=== PATIENT | male | born 1940 | race Native Hawaiian/Other Pacific Islander ===

== ENCOUNTER 2016-11-09 16:53 | Inpatient (IN) | payer MEDICARE, MEDICAID ==
--- NOTE | 2016-11-09 18:09 | C.PDOC ---
History Of Present Illness <Devan Velez - Last Filed: 11/09/16 18:59> <Rubin Barkley E - Last Filed: 11/09/16 23:28> 76-year-old male, presents to the emergency department with complaints of abdominal pain and fever since yesterday. During my evaluation, patient points to his epigastric region. States he saw his doctor today, who referred him to ED for further evaluation. Patient denies nausea/vomiting, diarrhea, cough or dysuria. States he took Tylenol yesterday, but did not take any medication today. No other complaints at this time. (Devan Velez) History Per: Patient History/Exam Limitations: no limitations Onset/Duration Of Symptoms: Days Current Symptoms Are (Timing): Still Present <Devan Velez - Last Filed: 11/09/16 18:59> <Rubin Barkley E - Last Filed: 11/09/16 23:28> Time Seen by Provider: 11/09/16 18:07 Chief Complaint (Nursing): Abdominal Pain Past Medical History Reviewed: Historical Data, Nursing Documentation, Vital Signs - Medical History PMH: Cardia Arrhythmia (BRADYCARDIA), Gall Bladder Disease, HTN, Hypercholesterolemia Denies: Chronic Kidney Disease Surgical History: Cholecystectomy, Coronary Stent, Endoscopy Family History: States: Unknown Family Hx - Social History Hx Alcohol Use: No Hx Substance Use: No - Immunization History Hx Tetanus Toxoid Vaccination: No Hx Influenza Vaccination: No Hx Pneumococcal Vaccination: No <Devan Velez - Last Filed: 11/09/16 18:59> Vital Signs: Last Vital Signs Temp 99.6 F 11/09/16 21:38 Pulse 76 11/09/16 21:38 Resp 18 11/09/16 21:38 BP 122/59 L 11/09/16 21:38 Pulse Ox 96 11/09/16 21:38 - [facility] Procedures CLOSED ENDOSCOPIC BIOPSY OF LARGE INTESTINE (02/03/14) Review Of Systems Except As Marked, All Systems Reviewed And Found Negative. Constitutional: Positive for: Fever Cardiovascular: Negative for: Chest Pain, Palpitations Respiratory: Negative for: Cough Gastrointestinal: Positive for: Abdominal Pain. Negative for: Nausea, Vomiting Skin: Negative for: Rash Neurological: Negative for: Weakness, Numbness, Headache, Dizziness <Devan Velez P - Last Filed: 11/09/16 18:59> Physical Exam - Physical Exam Appears: Non-toxic, No Acute Distress Skin: Warm, Dry, No Rash Head: Atraumatic, Normacephalic Eye(s): bilateral: Normal Inspection, PERRL Nose: Normal Oral Mucosa: Moist Lips: Normal Appearing Neck: Normal ROM Cardiovascular: Rhythm Regular Respiratory: Normal Breath Sounds, No Accessory Muscle Use Gastrointestinal/Abdominal: Soft, Tenderness (RLQ), No Guarding, No Rebound Extremity: Normal ROM Neurological/Psych: Oriented x3, Normal Speech <Devan Velez P - Last Filed: 11/09/16 18:59> ED Course And Treatment O2 Sat by Pulse Oximetry: 98 <Devan Velez P - Last Filed: 11/09/16 18:59> - Laboratory Results Result Diagrams: 11/09/16 19:13 11/09/16 19:13 Lab Interpretation: Abnormal Interpretation Of Abnormal: Leukocytosis with left shift. - CT Scan/US CT abdomen/pelvis Other Rad Studies (CT/US): Read By Radiologist, Radiology Report Reviewed CT/US Interpretation: Cholecystectomy with pneumobilia. Multiple cholesterol choledocholithiasis and mild biliary dilatation. Progress Note: Pt was signed out to me at 7pm by Dr. Velez to f/up labs and CT scan results. - Physician Consult Information Physician Contacted: Gordon Navarro (GI) Outcome Of Conversation: He recommended giving pt cipro and flagyl and admitting to the hospital. <Rubin Barkley E - Last Filed: 11/09/16 23:28> Progress - Interventions Interventions:: Observation, Intravenous fluid - Medications Administered Intravenous: Other (Abx) - Data Reviewed Data Reviewed: Lab, Diagnostic imaging, Old records - Patient Status Patient status: Partially improved - Continuity of Care Discussed patient case with:: Patient, Family-HIPPA compliant, ED Nurse, On- call PMD-pt unassigned Discussed pt. case with hr consultant/specialty: Gastroenterology - Patient Plan Patient Plan: Admission <Rubin Barkley E - Last Filed: 11/09/16 23:28> Disposition - Disposition Disposition Time: 19:00 <Devan Velez P - Last Filed: 11/09/16 18:59> Discussed With : Moy Hwang Comment: He accepted pt on his service and gave admitting orders to the nurse. Doctor Will See Patient In The: Hospital Counseled Patient/Family Regarding: Studies Performed, Diagnosis - Disposition Disposition Time: 23:27 <Rubin Barkley - Last Filed: 11/09/16 23:28> - Disposition Disposition: HOSPITALIZED Condition: FAIR - Clinical Impression Clinical Impression: Choledocholithiasis, Leukocytosis - Scribe Statement The provider has reviewed the documentation as recorded by the Scribe <Devan Velez - Last Filed: 11/09/16 18:59> <Rubin Barkley - Last Filed: 11/09/16 23:28> - Scribe Statement Janet Sanchez All medical record entries made by the Scribe were at my direction and personally dictated by me. I have reviewed the chart and agree that the record accurately reflects my personal performance of the history, physical exam, medical decision making, and the department course for this patient. I have also personally directed, reviewed, and agree with the discharge instructions and disposition. (Devan Velez) Physician Patient Turnover Patient Signed Over To: Rubin Barkley Handoff Comments: pending labs and CT <Devan Velez - Last Filed: 11/09/16 18:59>
[2016-11-09] MEDS ORDERED: Sodium Chloride 0.9% 1,000 ML IV ONE (18:30)
[2016-11-09 19:18] LABS: BASO % 0.2 % (0.0-2.0); HEMATOCRIT 36.7 % (35.0-51.0); LYMPH # 0.6 K/uL (1.0-4.3); LYMPH % 3.9 % (20.0-40.0); MEAN CELL VOLUME 102.2 fL (80.0-94.0); MEAN CORPUSCULAR HEMOGLOBIN 34.2 pg (27.0-31.0); MEAN CORPUSCULAR HGB CONC 33.5 g/dL (33.0-37.0); MEAN PLATELET VOLUME 6.3 fL (7.2-11.7); MONO # 1.1 K/uL (0.0-0.8); MONO % 7.6 % (0.0-10.0); PLATELET COUNT 188 K/uL (130-400); RED CELL DISTRIBUTION WIDTH 12.4 % (11.5-14.5); WHITE BLOOD COUNT 14.3 K/uL (4.8-10.8)
[2016-11-09 19:20] LABS: RBC URINE 12 /hpf (0-3); URINE BACTERIA RARE (<OCC); URINE BILIRUBIN NEGATIVE (NEGATIVE); URINE BLOOD 1+ (NEGATIVE); URINE COLOR Yellow (YELLOW); URINE GLUCOSE (UA) NORMAL (Normal); URINE KETONE NEGATIVE (NEGATIVE); URINE PROTEIN 1+ mg/dL (NEGATIVE); URINE UROBILINOGEN NORMAL mg/dL (0.2-1.0); WBC URINE 1 /hpf (0-5)
[2016-11-09 19:21] LABS: URINE LEUKOCYTE ESTERASE NEGATIVE Leu/uL (Negative)
[2016-11-09 19:24] LABS: CHLORIDE 87 mmol/L (98-107)
[2016-11-09 19:25] LABS: POTASSIUM 3.6 mmol/L (3.6-5.2); SODIUM 127 mmol/L (132-148)
[2016-11-09 19:27] LABS: ALB/GLOB RATIO 1.2 (1.0-2.1); ALKALINE PHOSPHATASE 63 U/L (38-126); AST/SGOT 33 U/L (17-59); BILIRUBIN,TOTAL 3.1 mg/dL (0.2-1.3); CARBON DIOXIDE 24 mmol/L (22-30); GFR AFRICAN-AMERICAN > 60; TOTAL PROTEIN 8.2 g/dL (6.3-8.3)
[2016-11-09 19:27] LABS: VENOUS BLOOD GAS PCO2 49 mmHg (40-60); VENOUS BLOOD PH 7.38 (7.32-7.43)
[2016-11-09 19:28] LABS: ALT/SGPT 42 U/L (21-72); BLOOD UREA NITROGEN 17 mg/dL (9-20); CALCIUM 8.7 mg/dl (8.6-10.4); GLUCOSE,RANDOM 95 mg/dL (75-110)
[2016-11-09] MEDS ORDERED: Iohexol 350mg/ml 100 ML ONE (19:43)
[2016-11-09 21:49] LABS: NEUTROPHIL 91 % (50-75); TOTAL CELLS COUNTED 100
[2016-11-09] MEDS ORDERED: metroNIDAZOLE IV 500 mg/100 ml 100 ML IVPB STA (22:55)
[2016-11-09] MEDS ORDERED: Ciprofloxacin 400mg/200ml D5W 200 ML IVPB STA (22:55)
[2016-11-09] MEDS ORDERED: metroNIDAZOLE IV 500 mg/100 ml 100 ML ONE (23:04)
[2016-11-10] MEDS ORDERED: Dextrose 5%-0.225% NS 1,000 ML IV ONE (00:37)
[2016-11-10] MEDS ORDERED: Ciprofloxacin 400mg/200ml D5W 200 ML IVPB ONE (00:37)
[2016-11-10] MEDS: Dextrose 5%/0.45% NS 1,000 ML IV SCH ×2 (00:44→13:49)
--- NOTE | 2016-11-10 09:08 | CT ---
PROCEDURE: CT Abdomen and Pelvis with contrast HISTORY: abdominal pain COMPARISON: Not available TECHNIQUE: Contrast dose: 100 mL Omnipaque 350 Radiation dose: Total exam DLP = 294.74 mGy-cm. FINDINGS: LOWER THORAX: 7 mm nodule in right lower lobe (series 3, image 8). This is unchanged from CT chest examination of 05/09/2016. Continued surveillance advised with follow-up noncontrast chest CT in 12-18 months. . Mild cardiomegaly. Coronary arterial stent. LIVER: Normal size, contour and attenuation. Intrahepatic biliary gas likely resulting from prior sphincterotomy associated with cholecystectomy. No mass. GALLBLADDER AND BILE DUCTS: Status post cholecystectomy. Probable noncalcified cholesterol stones in common bile duct. PANCREAS: Unremarkable. No gross lesion or ductal dilatation. No evidence of pancreatitis based on imaging findings. SPLEEN: Unremarkable. ADRENALS: Bilateral adrenal hypertrophy. No adrenal mass. KIDNEYS AND URETERS: Multiple bilateral renal cysts. There is a nonspecific focal parenchymal scar in the lower left kidney new since prior examination. Previously identified cyst in this location has now flattened beneath the cortical scar. No calculus or hydronephrosis. VASCULATURE: Unremarkable. No aortic aneurysm. BOWEL: Unremarkable. No obstruction. No gross mural thickening. APPENDIX: Normal appendix. PERITONEUM: Unremarkable. No free fluid. No free air. LYMPH NODES: Unremarkable. No enlarged lymph nodes. BLADDER: Unremarkable. REPRODUCTIVE: Normal prostate BONES: No acute fracture. OTHER FINDINGS: None. IMPRESSION: Status post cholecystectomy. Intrahepatic biliary gas, likely associated with prior sphincterotomy. Probable noncalcified cholesterol stones within common bile duct. No evidence of biliary obstruction. No evidence of pancreatitis. Additional minor findings as above. Preliminary interpretation of this examination was reported by [facility] at 10:35 p.m. on 11/09/2016. There is concurrence of this report with the preliminary interpretation.
[2016-11-10] MEDS: Enoxaparin 40 mg Syringe SC SCH (09:49)
[2016-11-10] MEDS: Metoprolol Succinate 100 mg XL Tab PO SCH (09:49)
[2016-11-10] MEDS: Ciprofloxacin 400mg/200ml D5W 200 ML IVPB SCH ×2 (10:27→20:52)
[2016-11-10] MEDS ORDERED: Gadodiamide 287 MG/ML VIAL (15ML) IV ONE (11:00)
[2016-11-10 11:18] LABS: BASO % 0.5 % (0.0-2.0); HEMATOCRIT 36.1 % (35.0-51.0); LYMPH # 0.8 K/uL (1.0-4.3); LYMPH % 11.5 % (20.0-40.0); MEAN CELL VOLUME 101.3 fL (80.0-94.0); MEAN CORPUSCULAR HEMOGLOBIN 34.5 pg (27.0-31.0); MEAN CORPUSCULAR HGB CONC 34.1 g/dL (33.0-37.0); MEAN PLATELET VOLUME 6.7 fL (7.2-11.7); MONO # 0.8 K/uL (0.0-0.8); MONO % 10.9 % (0.0-10.0); RED CELL DISTRIBUTION WIDTH 12.3 % (11.5-14.5); WHITE BLOOD COUNT 7.2 K/uL (4.8-10.8)
[2016-11-10 11:43] LABS: CHLORIDE 92 mmol/L (98-107)
[2016-11-10 11:44] LABS: POTASSIUM 3.3 mmol/L (3.6-5.2); SODIUM 131 mmol/L (132-148)
[2016-11-10 11:46] LABS: BILIRUBIN,TOTAL 3.2 mg/dL (0.2-1.3); CARBON DIOXIDE 25 mmol/L (22-30); GFR AFRICAN-AMERICAN > 60
[2016-11-10 11:47] LABS: ALB/GLOB RATIO 1.1 (1.0-2.1); ALKALINE PHOSPHATASE 62 U/L (38-126); ALT/SGPT 28 U/L (21-72); AST/SGOT 29 U/L (17-59); BLOOD UREA NITROGEN 12 mg/dL (9-20); CALCIUM 8.6 mg/dl (8.6-10.4); GLUCOSE,RANDOM 103 mg/dL (75-110); TOTAL PROTEIN 7.8 g/dL (6.3-8.3)
--- NOTE | 2016-11-10 12:49 | CP.PCM.CON ---
History of Present Illness - History of Present Illness History of Present Illness: This is a 76 year old man with epigastric pain and fever. Patient has a history of CBD stones dating back five years, treated with sphincterotomy and stone extraction. The most recent ERCP and cholangioscopy was at [facility], 11/12/2012. He did well until the day before admission, when he noted sudden onset of subxiphoid pain, vague, accompanied by chills and a feverish feeling. He did not check his temperature. The pain seemed similar to the pain he had previously from choledocholitihiasis. He presented to the office yesterday morning, at which time the temperature was 100.9 F. In the ER, the total bilirubin was noted to be elevated, but the remaining liver enzymes were WNL. CT scan was suspicious for recurrent CBD stones. Review of Systems - Constitutional Constitutional: Chills, Fever, Night Sweats - Cardiovascular Cardiovascular: absent: Chest Pain, Palpitations - Respiratory Respiratory: absent: Cough - Gastrointestinal Gastrointestinal: Abdominal Pain. absent: Constipation, Diarrhea, Dysphagia, Heartburn, Hematochezia, Nausea, Vomiting - Integumentary Integumentary: absent: Rash - Neurological Neurological: absent: Dizziness, Headaches, Weakness Past Patient History - Past Medical History & Family History Past Medical History?: Yes - Past Social History Smoking Status: Never Smoked - CARDIAC Hx Cardia Arrhythmia: Yes (BRADYCARDIA) Hx Hypercholesterolemia: Yes Hx Hypertension: Yes - PULMONARY Hx Respiratory Disorders: No - NEUROLOGICAL Hx Neurological Disorder: No - HEENT Hx HEENT Problems: Yes Hx Cataracts: Yes Hx Glaucoma: Yes - RENAL Hx Chronic Kidney Disease: No - ENDOCRINE/METABOLIC Hx Endocrine Disorders: No - HEMATOLOGICAL/ONCOLOGICAL Hx Blood Disorders: No - INTEGUMENTARY Hx Dermatological Problems: No - MUSCULOSKELETAL/RHEUMATOLOGICAL Hx Musculoskeletal Disorders: No Hx Falls: No - GASTROINTESTINAL Hx Gall Bladder Disease: Yes - GENITOURINARY/GYNECOLOGICAL Hx Genitourinary Disorders: Yes Hx Prostate Problems: Yes (BPH) - PSYCHIATRIC Hx Substance Use: No - SURGICAL HISTORY Hx Cholecystectomy: Yes Hx Coronary Stent: Yes - ANESTHESIA Hx Anesthesia: Yes Hx Anesthesia Reactions: No Hx Malignant Hyperthermia: No Meds Allergies/Adverse Reactions: Allergies Allergy/AdvReac Type Severity Reaction Status Date / Time Penicillins Allergy Severe ITCHING Verified 11/09/16 17:01 tazobactam Allergy Severe ITCHING Verified 11/09/16 17:01 - Medications Medications: Current Medications Amlodipine Besylate (Norvasc) 10 mg PO DAILY [facility] Last Admin: 11/10/16 09:49 Dose: 10 mg Aspirin (Ecotrin) 81 mg PO DAILY [facility] Last Admin: 11/10/16 09:49 Dose: 81 mg Enoxaparin Sodium (Lovenox) 40 mg SC DAILY [facility] Last Admin: 11/10/16 09:49 Dose: 40 mg Dextrose/Sodium Chloride (Dextrose 5%/0.45% Ns 1000 Ml) 1,000 mls @ 80 mls/hr IV .[id number] [facility] Last Admin: 11/10/16 00:44 Dose: 80 mls/hr Ciprofloxacin (Cipro 400mg/200ml Dsw) 200 mls @ 133 mls/hr IVPB Q12H [facility] Last Admin: 11/10/16 10:27 Dose: 133 mls/hr Metronidazole (Flagyl) 100 mls @ 100 mls/hr IVPB Q8 [facility] Influenza Virus Vaccine (Afluria) 45 mcg IM .ONCE ONE Stop: 11/12/16 14:01 Metoprolol Succinate (Toprol Xl) 100 mg PO DAILY [facility] Last Admin: 11/10/16 09:49 Dose: 100 mg Morphine Sulfate (Morphine) 2 mg IVP Q4 PRN PRN Reason: Pain, moderate (4-7) Last Admin: 11/10/16 09:56 Dose: 2 mg Pneumococcal Polyvalent Vaccine (Pneumovax 23 Vaccine) 0.5 ml IM .ONCE ONE Stop: 11/12/16 14:01 Tamsulosin HCl (Flomax) 0.4 mg PO DAILY [facility] Last Admin: 11/10/16 09:49 Dose: 0.4 mg Ursodiol (Actigall) 300 mg PO DAILY [facility] Last Admin: 11/10/16 09:49 Dose: 300 mg Physical Exam - Constitutional Appears: No Acute Distress - Head Exam Head Exam: ATRAUMATIC, NORMOCEPHALIC - Eye Exam Eye Exam: EOMI, PERRL - Neck Exam Neck exam: Negative for: Lymphadenopathy, Thyromegaly - Respiratory Exam Respiratory Exam: NORMAL BREATHING PATTERN. absent: Rales, Rhonchi, Wheezes - Cardiovascular Exam Cardiovascular Exam: REGULAR RHYTHM, +S1, +S2. absent: Gallop, Rubs, Systolic Murmur - GI/Abdominal Exam GI & Abdominal Exam: Normal Bowel Sounds, Soft. absent: Mass, Organomegaly, Tenderness - Rectal Exam Rectal Exam: Deferred - Extremities Exam Extremities exam: Negative for: calf tenderness, pedal edema Results - Vital Signs Recent Vital Signs: Last Vital Signs Temp 98.4 F 11/10/16 09:02 Pulse 74 11/10/16 09:02 Resp 18 11/10/16 09:02 BP 137/70 11/10/16 09:02 Pulse Ox 96 11/10/16 09:02 - Labs Result Diagrams: 11/10/16 11:13 11/10/16 11:13 Labs: Laboratory Results - last 24 hr 11/10/16 11:13 WBC 7.2 RBC 3.57 L Hgb 12.3 Hct 36.1 MCV 101.3 H MCH 34.5 H MCHC 34.1 RDW 12.3 Plt Count 182 MPV 6.7 L Neut % (Auto) 77.1 H Lymph % (Auto) 11.5 L [place] % (Auto) 10.9 H Eos % (Auto) 0.0 Baso % (Auto) 0.5 Neut # 5.5 Lymph # 0.8 L [place] # 0.8 Eos # 0.0 Baso # 0.0 Sodium 131 L Potassium 3.3 L Chloride 92 L Carbon Dioxide 25 Anion Gap 17 BUN 12 Creatinine 0.8 Est GFR ( Amer) > 60 Est GFR (Non-Af Amer) > 60 Random Glucose 103 Calcium 8.6 Total Bilirubin 3.2 H GGT 30 AST 29 ALT 28 Alkaline Phosphatase 62 Total Protein 7.8 Albumin 4.1 Globulin 3.7 Albumin/Globulin Ratio 1.1 Assessment & Plan - Assessment and Plan (Free Text) Assessment: Patient has fever, chill, epigastric pain, and evidence on imaging studies of recurrent CBD stones. Will continue antibiotics and plan for ERCP in AM.
[2016-11-10] MEDS ORDERED: Sodium Chloride 0.9% 1,000 ML IV SCH (13:15)
[2016-11-10] MEDS: metroNIDAZOLE IV 500 mg/100 ml 100 ML IVPB SCH ×2 (13:49→22:16)
--- NOTE | 2016-11-10 14:51 | MRI ---
PROCEDURE: Magnetic Resonance Cholangiopancreatography HISTORY: COMPARISON: None available. TECHNIQUE: Multiplanar, multisequence MR images of the abdomen were obtained, including heavily T2 weighted MRCP images of the biliary system. Rotating maximum intensity projection images of the biliary system were generated. FINDINGS: MRCP: There is dilatation of the extrahepatic common bile duct up to 12 mm diameter, possibly related to patient age and prior cholecystectomy. However, associated with this extrahepatic biliary dilatation there is some intrahepatic biliary dilatation as well. There is some pneumobilia appreciated. This is most clearly evident on post gadolinium T1 weighted images. This corresponds to pneumobilia identified on recent CT examination. There are multiple filling defects seen in the distal common bile duct consistent with calculi as demonstrated on CT examination. Possibility of obstructing distal calculus was be considered. Please correlate with laboratory evaluation. No significant enhancement of common bile duct pearce or intrahepatic bile duct pearce to suggest acute ascending cholangitis. No heterogeneity of hepatic parenchymal enhancement. No evidence of purulent material within bile ducts. LIVER: No hepatic mass. Mild intrahepatic biliary dilatation and pneumobilia as described. Pneumobilia likely related to sphincterotomy. GALLBLADDER: Status post cholecystectomy SPLEEN: Unremarkable. PANCREAS: Unremarkable. ADRENALS: Mild adrenal hypertrophy bilaterally. No mass. KIDNEYS: Bilateral small renal cysts, up to 1.9 cm. AORTA: No aneurysm. ASCITES: None. OTHER FINDINGS: None. IMPRESSION: Choledocholithiasis. Intra and extrahepatic biliary dilatation. Though this may be related to prior cholecystectomy and patient age, the possibility of biliary obstruction due to choledocholithiasis must be considered. Please correlate with laboratory evaluation. Please note that there is no significant enhancement of the pearce of the common bile duct or intrahepatic bile ducts to suggest ascending cholangitis.
[2016-11-10 15:05] LABS: BILIRUBIN,DIRECT 0.2 mg/dL (0.0-0.4)
[2016-11-11] MEDS: Dextrose 5%/0.45% NS 1,000 ML IV SCH (01:02)
[2016-11-11] MEDS: metroNIDAZOLE IV 500 mg/100 ml 100 ML IVPB SCH ×3 (05:51→21:30)
[2016-11-11 07:16] LABS: CHLORIDE 95 mmol/L (98-107); SODIUM 133 mmol/L (132-148)
[2016-11-11 07:17] LABS: BASO % 0.3 % (0.0-2.0); EOS % 0.7 % (0.0-4.0); HEMATOCRIT 32.5 % (35.0-51.0); LYMPH # 0.5 K/uL (1.0-4.3); LYMPH % 9.5 % (20.0-40.0); MEAN CELL VOLUME 100.9 fL (80.0-94.0); MEAN CORPUSCULAR HEMOGLOBIN 35.2 pg (27.0-31.0); MEAN CORPUSCULAR HGB CONC 34.9 g/dL (33.0-37.0); MEAN PLATELET VOLUME 6.9 fL (7.2-11.7); MONO # 0.9 K/uL (0.0-0.8); MONO % 15.1 % (0.0-10.0); PLATELET COUNT 157 K/uL (130-400); POTASSIUM 3.5 mmol/L (3.6-5.2); RED CELL DISTRIBUTION WIDTH 12.3 % (11.5-14.5); WHITE BLOOD COUNT 5.8 K/uL (4.8-10.8)
[2016-11-11 07:18] LABS: GFR AFRICAN-AMERICAN > 60
[2016-11-11 07:19] LABS: ALB/GLOB RATIO 1.1 (1.0-2.1); ALKALINE PHOSPHATASE 51 U/L (38-126); ALT/SGPT 31 U/L (21-72); AST/SGOT 31 U/L (17-59); BILIRUBIN,TOTAL 2.2 mg/dL (0.2-1.3); BLOOD UREA NITROGEN 12 mg/dL (9-20); CARBON DIOXIDE 24 mmol/L (22-30); GLUCOSE,RANDOM 93 mg/dL (75-110); TOTAL PROTEIN 6.8 g/dL (6.3-8.3)
[2016-11-11] MEDS ORDERED: Iohexol 240 (50 ml) ONE (07:53)
[2016-11-11] MEDS ORDERED: Sodium Chloride 0.9% 500 ML IV ONE (08:43)
[2016-11-11] MEDS ORDERED: Lactated Ringer's 500 ML IV ONE (08:43)
[2016-11-11] MEDS ORDERED: Propofol 10 mg/ml Inj (20 ML) ONE (08:48)
[2016-11-11 09:39] LABS: EOSINOPHIL 1 % (0-4); NEUTROPHIL 77 % (50-75); TOTAL CELLS COUNTED 100
--- NOTE | 2016-11-11 10:04 | PCM.SURG1 ---
Surgeon's Initial Post Op Note - Surgeon's Notes Surgeon: Gordon Navarro MD [employer] Field Specialist: none Type of Anesthesia: General Endo Pre-Operative Diagnosis: Cholangitis Operative Findings: Hiatal hernia, duodenal diverticulum, S/P prior sphincterotomy, multiple CBD stones Post-Operative Diagnosis: Hiatal hernia, duodenal diverticulum, choledocholithiasis Operation Performed: ERCP and stent Specimen/Specimens Removed: none Estimated Blood Loss: EBL {In ML}: 0 Post-Op Condition: Good Date of Surgery/Procedure: 11/11/16 Time of Surgery/Procedure: 10:04
[2016-11-11] MEDS: Ciprofloxacin 400mg/200ml D5W 200 ML IVPB SCH ×2 (11:24→20:36)
[2016-11-11] MEDS: Metoprolol Succinate 100 mg XL Tab PO SCH (11:25)
[2016-11-11] MEDS: Enoxaparin 40 mg Syringe SC SCH (11:45)
[2016-11-11 13:34] LABS: INR 1.3
--- NOTE | 2016-11-11 23:15 | CP.PCM.HP ---
History of Present Illness - History of Present Illness History of Present Illness: CHEIF COMPLAIN; abdominal pain in RLQ and epigastric area x 2 days HPI:This is a elderly 76 year old oreintal male with h/o prior cholecystectomy presented with epigastric pain and fever. Patient has a history of CBD stones dating back five years, treated with sphincterotomy and stone extraction. The most recent ERCP and cholangioscopy was at [facility], 11/12/2012. He did well until the day before admission, when he noted sudden onset of subxiphoid pain, vague, accompanied by chills and a feverish feeling. He did not check his temperature. The pain seemed similar to the pain he had previously from choledocholitihiasis. He presented to his GI doctor office yesterday morning, at which time the temperature was 100.9 F and was sent to ER for further evaluation. In the ER, the total bilirubin was noted to be elevated, but the remaining liver enzymes were WNL. CT scan was suspicious for recurrent CBD stones. Review of Systems - Review of Systems Systems not reviewed;Unavailable: Acuity of Condition - Constitutional Constitutional: Chills, Fatigue, Fever, Lethargy - EENT Eyes: absent: As Per HPI, Blind Spots, Blurred Vision, Change in Vision, Decreased Night Vision, Diplopia, Discharge, Dry Eye, Exophthalmos, Floaters, Irritation, Itchy Eyes, Loss of Peripheral Vision, Pain, Photophobia, Requires Corrective Lenses, Sees Flashes, Spots in Vision, Tunnel Vision, Other Visual Disturbances, Loss of Vision, Other Nose/Mouth/Throat: absent: As Per HPI, Epistaxis, Nasal Congestion, Nasal Discharge, Nasal Obstruction, Nasal Trauma, Nose Pain, Post Nasal Drip, Sinus Pain, Sinus Pressure, Bleeding Gums, Change in Voice, Dental Pain, Dry Mouth, Dysphagia, Halitosis, Hoarsness, Lip Swelling, Mouth Lesions, Mouth Pain, Odynophagia, Sore Throat, Throat Swelling, Tongue Swelling, Facial Pain, Neck Pain, Neck Mass, Other - Cardiovascular Cardiovascular: absent: As Per HPI, Acrocyanosis, Chest Pain, Chest Pain at Rest , Chest Pain with Activity, Claudication, Diaphoresis, Dyspnea, Dyspnea on Exertion, Edema, Irregular Heart Rhythm, Pain Radiating to Arm/Neck/Jaw, Leg Edema, Leg Ulcers, Lightheadedness, Orthopnea, Palpitations, Paroxysmal Nocturnal Dyspnea, Pedal Edema, Radiating Pain, Rapid Heart Rate, Slow Heart Rate, Syncope, Other - Gastrointestinal Gastrointestinal: Abdominal Pain, Nausea. absent: As Per HPI, Belching, Bloating, Change in Bowel Habits, Change in Stool Character, Coffee Ground Emesis, Constipation, Cramping, Diarrhea, Dyspepsia, Dysphagia, Early Satiety, Excessive Flatus, Fecal Incontinence, Heartburn, Hematemesis, Hematochezia, Loose Stools, Melena, Odynophagia, Temesmus, Vomiting, Other - Genitourinary Genitourinary: absent: As Per HPI, Change in Urinary Stream, Difficulty Urinating, Dysuria, Flank Pain, Hematuria, Pyuria, Nocturia, Urinary Incontinence, Urinary Frequency, Urinary Hesitance, Urinary Urgency, Voiding Freq/Small Amts, Freq UTI, Hx Renal/Bladder Calculi, Hx /Renal Surgery, Bladder Distension, Other Past Patient History - Past Medical History & Family History Past Medical History?: Yes - Past Social History Smoking Status: Never Smoked - CARDIAC Hx Cardia Arrhythmia: Yes (BRADYCARDIA) Hx Hypercholesterolemia: Yes Hx Hypertension: Yes - PULMONARY Hx Respiratory Disorders: No - NEUROLOGICAL Hx Neurological Disorder: No - HEENT Hx HEENT Problems: Yes Hx Cataracts: Yes Hx Glaucoma: Yes - RENAL Hx Chronic Kidney Disease: No - ENDOCRINE/METABOLIC Hx Endocrine Disorders: No - HEMATOLOGICAL/ONCOLOGICAL Hx Blood Disorders: No - INTEGUMENTARY Hx Dermatological Problems: No - MUSCULOSKELETAL/RHEUMATOLOGICAL Hx Musculoskeletal Disorders: No Hx Falls: No - GASTROINTESTINAL Hx Gall Bladder Disease: Yes - GENITOURINARY/GYNECOLOGICAL Hx Genitourinary Disorders: Yes Hx Prostate Problems: Yes (BPH) - PSYCHIATRIC Hx Substance Use: No - SURGICAL HISTORY Hx Cholecystectomy: Yes Hx Coronary Stent: Yes - ANESTHESIA Hx Anesthesia: Yes Hx Anesthesia Reactions: No Hx Malignant Hyperthermia: No Meds Allergies/Adverse Reactions: Allergies Allergy/AdvReac Type Severity Reaction Status Date / Time Penicillins Allergy Severe ITCHING Verified 11/09/16 17:01 tazobactam Allergy Severe ITCHING Verified 11/09/16 17:01 Physical Exam - Constitutional Appears: No Acute Distress - Head Exam Head Exam: ATRAUMATIC, NORMAL INSPECTION, NORMOCEPHALIC - Eye Exam Eye Exam: EOMI, Normal appearance, PERRL Pupil Exam: NORMAL ACCOMODATION, PERRL - ENT Exam ENT Exam: Mucous Membranes Moist - Respiratory Exam Respiratory Exam: Clear to Auscultation Bilateral, NORMAL BREATHING PATTERN - Cardiovascular Exam Cardiovascular Exam: REGULAR RHYTHM - GI/Abdominal Exam GI & Abdominal Exam: Normal Bowel Sounds, Soft, Tenderness. absent: Bruit, Diminished Bowel Sounds, Distended, Firm, Guarding, Hernia, Hyperactive Bowel Sounds, Hypoactive Bowel Sounds, Mass, Organomegaly, Pulsatile Mass, Rebound, Rigid - Rectal Exam Rectal Exam: Deferred - Neurological Exam Neurological exam: Alert, CN II-XII Intact, Normal Gait, Oriented x3, Reflexes Normal Results - Vital Signs Recent Vital Signs: Last Vital Signs Temp 98 F 11/11/16 15:15 Pulse 59 L 11/11/16 15:15 Resp 20 11/11/16 15:15 BP 135/64 11/11/16 15:15 Pulse Ox 98 11/11/16 15:15 - Labs Result Diagrams: 11/11/16 06:58 11/11/16 06:58 Labs: Laboratory Results - last 24 hr 11/11/16 11/11/16 06:58 13:22 WBC 5.8 RBC 3.23 L Hgb 11.4 L Hct 32.5 L MCV 100.9 H MCH 35.2 H MCHC 34.9 RDW 12.3 Plt Count 157 MPV 6.9 L Neut % (Auto) 74.4 Lymph % (Auto) 9.5 L [place] % (Auto) 15.1 H Eos % (Auto) 0.7 Baso % (Auto) 0.3 Neut # 4.3 Lymph # 0.5 L [place] # 0.9 H Eos # 0.0 Baso # 0.0 Neutrophils % (Manual) 77 H Band Neutrophils % 2 Lymphocytes % (Manual) 5 L Monocytes % (Manual) 15 H Eosinophils % (Manual) 1 Toxic Granulation Present Platelet Estimate Normal Polychromasia Slight Hypochromasia (manual) Slight Anisocytosis (manual) Slight Macrocytosis (manual) Slight PT 14.8 H INR 1.3 Sodium 133 Potassium 3.5 L Chloride 95 L Carbon Dioxide 24 Anion Gap 18 BUN 12 Creatinine 0.8 Est GFR ( Amer) > 60 Est GFR (Non-Af Amer) > 60 Random Glucose 93 Calcium 8.0 L Total Bilirubin 2.2 H GGT 28 AST 31 ALT 31 Alkaline Phosphatase 51 Total Protein 6.8 Albumin 3.6 Globulin 3.2 Albumin/Globulin Ratio 1.1 Assessment & Plan - Assessment and Plan (Free Text) Assessment: CHOLEDECHOLITHIASIS/ LEUKOCYTOSIS Patient has fever, chill, epigastric pain, and evidence on imaging studies of recurrent CBD stones. Will continue antibiotics and plan for ERCP in AM.
--- NOTE | 2016-11-11 23:27 | CP.PCM.PN ---
Subjective - Date & Time of Evaluation Date of Evaluation: 11/11/16 - Subjective Subjective: PT SEEN AND EVALUated, s/p ERCP and stent, NAD Objective - Vital Signs/Intake and Output Vital Signs (last 24 hours): Temp Pulse Resp BP Pulse Ox 98 F 59 L 20 135/64 98 11/11/16 15:15 11/11/16 15:15 11/11/16 15:15 11/11/16 15:15 11/11/16 15:15 Intake and Output: 11/11/16 11/12/16 18:59 06:59 Intake Total 1020 Output Total 200 Balance -200 1020 - Medications Medications: Current Medications Amlodipine Besylate (Norvasc) 5 mg PO DAILY [facility] Last Admin: 11/11/16 11:25 Dose: 5 mg Aspirin (Ecotrin) 81 mg PO DAILY [facility] Last Admin: 11/11/16 11:25 Dose: 81 mg Enoxaparin Sodium (Lovenox) 40 mg SC DAILY [facility] Last Admin: 11/11/16 11:45 Dose: Not Given Ciprofloxacin (Cipro 400mg/200ml Dsw) 200 mls @ 133 mls/hr IVPB Q12H [facility] Last Admin: 11/11/16 20:36 Dose: 133 mls/hr Metronidazole (Flagyl) 100 mls @ 100 mls/hr IVPB Q8 [facility] Last Admin: 11/11/16 21:30 Dose: 100 mls/hr Potassium Chloride 20 meq/ (Sodium Chloride) 1,010 mls @ 60 mls/hr IV .[id number] [facility] Last Admin: 11/11/16 19:19 Dose: 60 mls/hr Influenza Virus Vaccine (Afluria) 45 mcg IM .ONCE ONE Stop: 11/12/16 14:01 Metoprolol Succinate (Toprol Xl) 100 mg PO DAILY [facility] Last Admin: 11/11/16 11:25 Dose: 100 mg Morphine Sulfate (Morphine) 2 mg IVP Q4 PRN PRN Reason: Pain, moderate (4-7) Last Admin: 11/11/16 21:34 Dose: 2 mg Pneumococcal Polyvalent Vaccine (Pneumovax 23 Vaccine) 0.5 ml IM .ONCE ONE Stop: 11/12/16 14:01 Tamsulosin HCl (Flomax) 0.4 mg PO DAILY [facility] Last Admin: 11/11/16 11:25 Dose: 0.4 mg Ursodiol (Actigall) 300 mg PO DAILY [facility] Last Admin: 11/11/16 11:25 Dose: 300 mg - Labs Labs: 11/11/16 06:58 11/11/16 06:58 PT 14.8 SECONDS (9.7-12.2) H 11/11/16 13:22 INR 1.3 11/11/16 13:22 - Constitutional Appears: No Acute Distress - Head Exam Head Exam: ATRAUMATIC, NORMAL INSPECTION, NORMOCEPHALIC - Eye Exam Eye Exam: EOMI, Normal appearance, PERRL Pupil Exam: NORMAL ACCOMODATION, PERRL - Respiratory Exam Respiratory Exam: Clear to Ausculation Bilateral, NORMAL BREATHING PATTERN - Cardiovascular Exam Cardiovascular Exam: REGULAR RHYTHM, +S1, +S2. absent: Murmur - GI/Abdominal Exam GI & Abdominal Exam: Soft, Normal Bowel Sounds. absent: Tenderness - Rectal Exam Rectal Exam: Deferred Assessment and Plan - Assessment and Plan (Free Text) Assessment: CHOLEDECHOLITHIASIS S/P ERCP and stent
[2016-11-12] MEDS: metroNIDAZOLE IV 500 mg/100 ml 100 ML IVPB SCH (05:28)
[2016-11-12 08:14] LABS: BASO % 0.4 % (0.0-2.0); EOS # 0.1 K/uL (0.0-0.7); EOS % 1.3 % (0.0-4.0); HEMATOCRIT 32.4 % (35.0-51.0); LYMPH # 0.9 K/uL (1.0-4.3); LYMPH % 17.9 % (20.0-40.0); MEAN CELL VOLUME 100.9 fL (80.0-94.0); MEAN CORPUSCULAR HEMOGLOBIN 34.9 pg (27.0-31.0); MEAN CORPUSCULAR HGB CONC 34.5 g/dL (33.0-37.0); MEAN PLATELET VOLUME 6.8 fL (7.2-11.7); MONO # 0.9 K/uL (0.0-0.8); MONO % 18.2 % (0.0-10.0); RED CELL DISTRIBUTION WIDTH 12.2 % (11.5-14.5); WHITE BLOOD COUNT 4.7 K/uL (4.8-10.8)
[2016-11-12 08:24] LABS: CHLORIDE 100 mmol/L (98-107)
[2016-11-12 08:25] LABS: POTASSIUM 3.6 mmol/L (3.6-5.2); SODIUM 137 mmol/L (132-148)
[2016-11-12 08:27] LABS: ALB/GLOB RATIO 1.1 (1.0-2.1); ALKALINE PHOSPHATASE 49 U/L (38-126); AST/SGOT 33 U/L (17-59); BILIRUBIN,DIRECT 0.5 mg/dL (0.0-0.4); BILIRUBIN,TOTAL 1.6 mg/dL (0.2-1.3); BLOOD UREA NITROGEN 13 mg/dL (9-20); CARBON DIOXIDE 23 mmol/L (22-30); GFR AFRICAN-AMERICAN > 60; GLUCOSE,RANDOM 90 mg/dL (75-110); TOTAL PROTEIN 6.6 g/dL (6.3-8.3)
[2016-11-12 08:28] LABS: ALT/SGPT 29 U/L (21-72); CALCIUM 8.2 mg/dl (8.6-10.4)
[2016-11-12] MEDS: Metoprolol Succinate 100 mg XL Tab PO SCH (10:22)
[2016-11-12] MEDS: Ciprofloxacin 400mg/200ml D5W 200 ML IVPB SCH (10:23)
[2016-11-12] MEDS: Enoxaparin 40 mg Syringe SC SCH (10:30)
[2016-11-12 10:58] VITALS: RESP 18; TEMP 98.1
--- NOTE | 2016-11-12 11:15 | CP.PCM.PN ---
Subjective - Date & Time of Evaluation Date of Evaluation: 11/12/16 Time of Evaluation: 11:12 - Subjective Subjective: Patient had an episode of epigastric pain yesterday. He denies having nausea or vomiting. He remains afebrile. The TBILI is down to 1.6, 0.5 being the direct fraction. The rest of the liver enzymes remain normal. Objective - Vital Signs/Intake and Output Vital Signs (last 24 hours): Temp Pulse Resp BP Pulse Ox 98.1 F 62 18 128/70 97 11/12/16 08:00 11/12/16 08:00 11/12/16 08:00 11/12/16 08:00 11/12/16 08:00 Intake and Output: 11/12/16 11/12/16 06:59 18:59 Intake Total 1600 Balance 1600 - Medications Medications: Current Medications Amlodipine Besylate (Norvasc) 5 mg PO DAILY [facility] Last Admin: 11/12/16 10:22 Dose: 5 mg Aspirin (Ecotrin) 81 mg PO DAILY [facility] Last Admin: 11/12/16 10:22 Dose: 81 mg Enoxaparin Sodium (Lovenox) 40 mg SC DAILY [facility] Last Admin: 11/11/16 11:45 Dose: Not Given Ciprofloxacin (Cipro 400mg/200ml Dsw) 200 mls @ 133 mls/hr IVPB Q12H [facility] Last Admin: 11/12/16 10:23 Dose: 133 mls/hr Metronidazole (Flagyl) 100 mls @ 100 mls/hr IVPB Q8 [facility] Last Admin: 11/12/16 05:28 Dose: 100 mls/hr Potassium Chloride 20 meq/ (Sodium Chloride) 1,010 mls @ 60 mls/hr IV .[id number] [facility] Last Admin: 11/11/16 19:19 Dose: 60 mls/hr Influenza Virus Vaccine (Afluria) 45 mcg IM .ONCE ONE Stop: 11/12/16 14:01 Metoprolol Succinate (Toprol Xl) 100 mg PO DAILY [facility] Last Admin: 11/12/16 10:22 Dose: 100 mg Morphine Sulfate (Morphine) 2 mg IVP Q4 PRN PRN Reason: Pain, moderate (4-7) Last Admin: 11/11/16 21:34 Dose: 2 mg Pneumococcal Polyvalent Vaccine (Pneumovax 23 Vaccine) 0.5 ml IM .ONCE ONE Stop: 11/12/16 14:01 Tamsulosin HCl (Flomax) 0.4 mg PO DAILY [facility] Last Admin: 11/12/16 10:22 Dose: 0.4 mg Ursodiol (Actigall) 300 mg PO DAILY [facility] Last Admin: 11/12/16 10:22 Dose: 300 mg - Labs Labs: 11/12/16 08:02 11/12/16 08:02 PT 14.8 SECONDS (9.7-12.2) H 11/11/16 13:22 INR 1.3 11/11/16 13:22 - Constitutional Appears: No Acute Distress - Head Exam Head Exam: ATRAUMATIC, NORMOCEPHALIC - Eye Exam Eye Exam: EOMI, PERRL - Neck Exam Neck Exam: absent: Lymphadenopathy, Thyromegaly - Respiratory Exam Respiratory Exam: NORMAL BREATHING PATTERN. absent: Rales, Rhonchi, Wheezes - Cardiovascular Exam Cardiovascular Exam: REGULAR RHYTHM, +S1, +S2. absent: Gallop, Rubs, Murmur - GI/Abdominal Exam GI & Abdominal Exam: Soft, Normal Bowel Sounds. absent: Tenderness, Mass, Organomegaly - Rectal Exam Rectal Exam: Deferred - Extremities Exam Extremities Exam: absent: Calf Tenderness, Pedal Edema Assessment and Plan - Assessment and Plan (Free Text) Assessment: ERCP confirmed multiple CBD stones, and a stent was placed. He is stable for discharge from my standpoint. He will be referred to Dr. Tay at [facility], whom he has seen before for this problem.
--- NOTE | 2016-11-12 11:53 | RAD ---
PROCEDURE: Year CP HISTORY: CBD STONE COMPARISON: None TECHNIQUE: Standard protocol for this study/examination. FINDINGS: Total fluoroscopic time (continuous mode) utilized during the procedure: 100.1 seconds. Biliary stent placement documented. IMPRESSION: Less than 1 hr fluoroscopic time utilized during performance of the procedure.
[2016-11-12 12:12] VITALS: BP 162/76; PULSE 61; O2SAT 98
--- NOTE | 2016-11-12 13:41 | CP.PCM.PN ---
Subjective - Date & Time of Evaluation Date of Evaluation: 11/12/16 Time of Evaluation: 11:00 - Subjective Subjective: Pt seen an d examined today , denies any abdominal pain, N/V/D, fever, chills , tolerating diet s/p ERCP with stent Objective - Vital Signs/Intake and Output Vital Signs (last 24 hours): Temp Pulse Resp BP Pulse Ox 98.1 F 61 18 162/76 H 98 11/12/16 08:00 11/12/16 11:18 11/12/16 08:00 11/12/16 11:18 11/12/16 11:18 Intake and Output: 11/12/16 11/12/16 06:59 18:59 Intake Total 1600 Balance 1600 - Medications Medications: Current Medications Amlodipine Besylate (Norvasc) 5 mg PO DAILY [facility] Last Admin: 11/12/16 10:22 Dose: 5 mg Aspirin (Ecotrin) 81 mg PO DAILY [facility] Last Admin: 11/12/16 10:22 Dose: 81 mg Enoxaparin Sodium (Lovenox) 40 mg SC DAILY [facility] Last Admin: 11/11/16 11:45 Dose: Not Given Ciprofloxacin (Cipro 400mg/200ml Dsw) 200 mls @ 133 mls/hr IVPB Q12H [facility] Last Admin: 11/12/16 10:23 Dose: 133 mls/hr Metronidazole (Flagyl) 100 mls @ 100 mls/hr IVPB Q8 [facility] Last Admin: 11/12/16 05:28 Dose: 100 mls/hr Potassium Chloride 20 meq/ (Sodium Chloride) 1,010 mls @ 60 mls/hr IV .[id number] [facility] Last Admin: 11/11/16 19:19 Dose: 60 mls/hr Influenza Virus Vaccine (Afluria) 45 mcg IM .ONCE ONE Stop: 11/12/16 14:01 Metoprolol Succinate (Toprol Xl) 100 mg PO DAILY [facility] Last Admin: 11/12/16 10:22 Dose: 100 mg Morphine Sulfate (Morphine) 2 mg IVP Q4 PRN PRN Reason: Pain, moderate (4-7) Last Admin: 11/11/16 21:34 Dose: 2 mg Pneumococcal Polyvalent Vaccine (Pneumovax 23 Vaccine) 0.5 ml IM .ONCE ONE Stop: 11/12/16 14:01 Tamsulosin HCl (Flomax) 0.4 mg PO DAILY [facility] Last Admin: 11/12/16 10:22 Dose: 0.4 mg Ursodiol (Actigall) 300 mg PO DAILY [facility] Last Admin: 11/12/16 10:22 Dose: 300 mg - Labs Labs: 11/12/16 08:02 11/12/16 08:02 PT 14.8 SECONDS (9.7-12.2) H 11/11/16 13:22 INR 1.3 11/11/16 13:22 Assessment and Plan - Assessment and Plan (Free Text) Assessment: A/P 76 YR old male admitted for RUQ abdominal pain ,/choledecholithiais s/p ercp with stent labs -WNL except bilrubin , but improved from 3.1- 1.6 today vss- stable a febrile Blood culture- Negative so far seen by Dr. kendrick ,cleared for discharge home today from GI stand point and f /u with Dr. Tay at [facility] Cipro prescription given by Dr. Kendrick D/w Dr. Hwang, stable for discharge home today and f/u with PMD Dr. carmona and Dr. Kendrick office Discharge instructions discussed with patient including follow up visit, who understand and agrees with plan Pt instructed to returns to ED if symptoms returns or any new symptoms develops
[2016-11-12] MEDS ORDERED: Influenza Virus Vaccine 45 mcg/0.5 ml Syr IM ONE (14:00)
[2016-11-12] MEDS ORDERED: Pneumococcal 23-Valent Vaccine IM ONE (14:00)
--- NOTE | 2016-11-12 22:20 | CP.PCM.DIS ---
Provider - Provider Date of Admission: 11/09/16 23:29 Attending physician: Moy Hwang MD Hospital Course - Lab Results Lab Results: Most Recent Lab Values WBC 4.7 K/uL (4.8-10.8) L 11/12/16 08:02 RBC 3.21 Mil/uL (4.40-5.90) L 11/12/16 08:02 Hgb 11.2 g/dL (12.0-18.0) L 11/12/16 08:02 Hct 32.4 % (35.0-51.0) L 11/12/16 08:02 MCV 100.9 fL (80.0-94.0) H 11/12/16 08:02 MCH 34.9 pg (27.0-31.0) H 11/12/16 08:02 MCHC 34.5 g/dL (33.0-37.0) 11/12/16 08:02 RDW 12.2 % (11.5-14.5) 11/12/16 08:02 Plt Count 169 K/uL (130-400) 11/12/16 08:02 MPV 6.8 fL (7.2-11.7) L 11/12/16 08:02 Neut % (Auto) 62.2 % (50.0-75.0) 11/12/16 08:02 Lymph % (Auto) 17.9 % (20.0-40.0) L 11/12/16 08:02 Rosebud % (Auto) 18.2 % (0.0-10.0) H 11/12/16 08:02 Eos % (Auto) 1.3 % (0.0-4.0) 11/12/16 08:02 Baso % (Auto) 0.4 % (0.0-2.0) 11/12/16 08:02 Neut # 2.9 K/uL (1.8-7.0) 11/12/16 08:02 Lymph # 0.9 K/uL (1.0-4.3) L 11/12/16 08:02 Rosebud # 0.9 K/uL (0.0-0.8) H 11/12/16 08:02 Eos # 0.1 K/uL (0.0-0.7) 11/12/16 08:02 Baso # 0.0 K/uL (0.0-0.2) 11/12/16 08:02 Neutrophils % (Manual) 77 % (50-75) H 11/11/16 06:58 Band Neutrophils % 2 % (0-2) 11/11/16 06:58 Lymphocytes % (Manual) 5 % (20-40) L 11/11/16 06:58 Monocytes % (Manual) 15 % (0-10) H 11/11/16 06:58 Eosinophils % (Manual) 1 % (0-4) 11/11/16 06:58 Toxic Granulation Present 11/11/16 06:58 Platelet Estimate Normal (NORMAL) 11/11/16 06:58 Polychromasia Slight 11/11/16 06:58 Hypochromasia (manual) Slight 11/11/16 06:58 Anisocytosis (manual) Slight 11/11/16 06:58 Microcytosis (manual) Slight 11/09/16 19:13 Macrocytosis (manual) Slight 11/11/16 06:58 Tear Drop Cells Slight 11/09/16 19:13 PT 14.8 SECONDS (9.7-12.2) H 11/11/16 13:22 INR 1.3 11/11/16 13:22 pO2 24 mm/Hg (30-55) L 11/09/16 19:15 VBG pH 7.38 (7.32-7.43) 11/09/16 19:15 VBG pCO2 49 mmHg (40-60) 11/09/16 19:15 VBG HCO3 25.7 mmol/L 11/09/16 19:15 VBG Total CO2 30.5 mmol/L (22-28) H 11/09/16 19:15 VBG O2 Sat (Calc) 54.0 % (40-65) 11/09/16 19:15 VBG Base Excess 3.0 mmol/L (0.0-2.0) H 11/09/16 19:15 VBG Potassium 3.4 mmol/L (3.6-5.2) L 11/09/16 19:15 Sodium 129.0 mmol/l (132-148) L 11/09/16 19:15 Chloride 97.0 mmol/L (98-107) L 11/09/16 19:15 Glucose 96 mg/dl (75-110) 11/09/16 19:15 Lactate 1.1 mmol/L (0.7-2.1) 11/09/16 19:15 Sodium 137 mmol/L (132-148) 11/12/16 08:02 Potassium 3.6 mmol/L (3.6-5.2) 11/12/16 08:02 Chloride 100 mmol/L (98-107) 11/12/16 08:02 Carbon Dioxide 23 mmol/L (22-30) 11/12/16 08:02 Anion Gap 18 (10-20) 11/12/16 08:02 BUN 13 mg/dL (9-20) 11/12/16 08:02 Creatinine 0.8 MG/DL (0.8-1.5) 11/12/16 08:02 Est GFR ( Amer) > 60 11/12/16 08:02 Est GFR (Non-Af Amer) > 60 11/12/16 08:02 Random Glucose 90 mg/dL (75-110) 11/12/16 08:02 Calcium 8.2 mg/dl (8.6-10.4) L 11/12/16 08:02 Total Bilirubin 1.6 mg/dL (0.2-1.3) H 11/12/16 08:02 Direct Bilirubin 0.5 mg/dL (0.0-0.4) H 11/12/16 08:02 GGT 26 U/L (8-78) 11/12/16 08:02 AST 33 U/L (17-59) 11/12/16 08:02 ALT 29 U/L (21-72) 11/12/16 08:02 Alkaline Phosphatase 49 U/L (38-126) 11/12/16 08:02 Troponin I 0.0140 ng/mL (0.00-0.120) 11/09/16 19:13 Total Protein 6.6 g/dL (6.3-8.3) 11/12/16 08:02 Albumin 3.4 g/dL (3.5-5.0) L 11/12/16 08:02 Globulin 3.2 gm/dL (2.2-3.9) 11/12/16 08:02 Albumin/Globulin Ratio 1.1 (1.0-2.1) 11/12/16 08:02 Lipase 70 U/L (23-300) 11/09/16 19:44 Venous Blood Potassium 3.4 mmol/L (3.6-5.2) L 11/09/16 19:15 Urine Color Yellow (YELLOW) 11/09/16 19:13 Urine Clarity Clear (Clear) 11/09/16 19:13 Urine pH 6.0 (5.0-8.0) 11/09/16 19:13 Ur Specific [place] 1.014 (1.003-1.030) 11/09/16 19:13 Urine Protein 1+ mg/dL (NEGATIVE) H 11/09/16 19:13 Urine Glucose (UA) Normal mg/dL (Normal) 11/09/16 19:13 Urine Ketones Negative mg/dL (NEGATIVE) 11/09/16 19:13 Urine Blood 1+ (NEGATIVE) H 11/09/16 19:13 Urine Nitrate Negative (NEGATIVE) 11/09/16 19:13 Urine Bilirubin Negative (NEGATIVE) 11/09/16 19:13 Urine Urobilinogen Normal mg/dL (0.2-1.0) 11/09/16 19:13 Ur Leukocyte Esterase Negative Khang/uL (Negative) 11/09/16 19:13 Urine WBC (Auto) 1 /hpf (0-5) 11/09/16 19:13 Urine RBC (Auto) 12 /hpf (0-3) H 11/09/16 19:13 Ur Squamous Epith Cells < 1 /hpf (0-5) 11/09/16 19:13 Urine Bacteria Rare (<OCC) 11/09/16 19:13 Influenza Typ A,B (EIA) Negative for flu a/b (NEGATIVE) 11/09/16 19:00 - Hospital Course Hospital Course: 76 YR old male admitted for RUQ abdominal pain ,/choledecholithiais s/p ercp with stent labs -WNL except bilrubin , but improved from 3.1- 1.6 today vss- stable a febrile Blood culture- Negative so far seen by Dr. kendrick ,cleared for discharge home today from GI stand point and f /u with Dr. Tay at [facility] Cipro prescription given by Dr. Kendrick PT is stable for discharge home today and f/u with PMD Dr. carmona and Dr. Kendrick office Discharge instructions discussed with patient including follow up visit, who understand and agrees with plan Pt instructed to returns to ED if symptoms returns or any new symptoms develops Discharge Exam - Head Exam Head Exam: ATRAUMATIC, NORMOCEPHALIC - Eye Exam Eye Exam: Normal appearance, PERRL - ENT Exam ENT Exam: Mucous Membranes Moist - Respiratory Exam Respiratory Exam: Clear to PA & Lateral, NORMAL BREATHING PATTERN - Cardiovascular Exam Cardiovascular Exam: REGULAR RHYTHM, +S1, +S2 - GI/Abdominal Exam GI & Abdominal Exam: Normal Bowel Sounds - Neurological Exam Neurological exam: Alert, CN II-XII Intact, Normal Gait, Oriented x3, Reflexes Normal Discharge Plan - Discharge Medications Prescriptions: Ciprofloxacin HCl [Cipro] 500 mg PO BID #14 tablet - Follow Up Plan Condition: FAIR Disposition: HOME/ ROUTINE Instructions: Ciprofloxacin (By mouth), Gallstones (DC), ERCP (Endoscopic Retrograde Cholangiopancreatography) (DC), Leukocytosis (DC) Additional Instructions: f/u with Dr. Sped. Crawford in 1 week f/u with Dr. kendrick office in 2 weeks - call for appointment f/u with Dr. Tay, at [facility] - Call and make an appointmen t continue medication as per Med. Rec Dr. Kendrick already give prescription to the patient Referrals: Michael Tay MD [Staff Provider] - Gordon Kendrick MD [Staff Provider] -
== END 2016-11-12 16:25 | disposition home or self-care (01) | DRG 446 ==
LOC: C.ER 16:53 → C.5T 23:29
PROVIDERS: ADMIT Internal Medicine; ATTEND Internal Medicine
PROC: 0F798DZ Dilation of Common Bile Duct with Intraluminal Device, Via Natural or Artificial Opening Endoscopic (ICD-10-PCS; principal; 2016-11-11 09:12)
DX: K80.50 Calculus of bile duct without cholangitis or cholecystitis without obstruction (principal); I10 Essential (primary) hypertension; K44.9 Diaphragmatic hernia without obstruction or gangrene; K57.10 Diverticulosis of small intestine without perforation or abscess without bleeding; D72.829 Elevated white blood cell count, unspecified; N40.0 Benign prostatic hyperplasia without lower urinary tract symptoms; I25.10 Atherosclerotic heart disease of native coronary artery without angina pectoris; Z95.5 Presence of coronary angioplasty implant and graft; H40.9 Unspecified glaucoma; H26.9 Unspecified cataract; Z90.49 Acquired absence of other specified parts of digestive tract; Z88.1 Allergy status to other antibiotic agents; Z88.0 Allergy status to penicillin

== ENCOUNTER 2018-12-12 09:59 | Outpatient (CLI) | payer MEDICARE, MEDICAID | END 2018-12-12 10:00 | disposition home or self-care (01) | LOC: C.USIC 10:00 | DX: E01.0 Iodine-deficiency related diffuse (endemic) goiter (principal) ==